=== PATIENT | male | born 1950 | race Caucasian/White ===

== ENCOUNTER 2021-06-29 15:37 | Outpatient (CLI) | payer MEDICARE, OTHER, SELFPAY ==
--- NOTE | 2021-06-29 | CT_ITS ---
WS: [id number] Exam: CT sinus wo con* [id number] Date/Time of Exam: 06/29/2021 4:03 PM Reason For Exam: SINUSITIS DLP: 514.[address] scans at [facility] use at least one of these dose optimization techniques: automated e xposure control; mA and/or kV adjustment per patient size (includes targeted exams where dose is matc hed to clinical indication); or iterative reconstruction. The facial sinuses are evaluated in the axial plane with coronal and sagittal reformatted images. The paranasal sinuses are clear. No fluid levels or soft tissue masses are seen. There is a leftward nasal septal deviation. Moderate amount of fluid in the right mastoid air cells. Inner ear cavities a ppear to be clear. Left mastoids are clear. CT/CT sinus wo con* [id number] IMPRESSION: 1. The facial sinuses are clear. No sign of sinusitis or mass. 2. Moderate amount of fluid in the right mastoids which might indicate mastoidi tis.
== END 2021-06-29 15:38 | disposition home or self-care (01) ==
PROVIDERS: PCP Electrodiagnostic Medicine; Visit Provider Electrodiagnostic Medicine
DX: J01.90 Acute sinusitis, unspecified (principal)
CPT/HCPCS: 70486

== ENCOUNTER 2021-07-22 09:53 | Outpatient (CLI) | payer MEDICARE, OTHER, SELFPAY ==
--- NOTE | 2021-07-22 10:06 | XRR_ITS ---
PROCEDURE INFORMATION: Exam: XR Lumbosacral Spine Exam date and time: 07/22/2021 10:06 AM Age: 71 years old Clinical indication: Low back pain; Patient HX: Lower back pain and cough for 1 month; HX of septicemia from 4 years ago, PT states it settled in lower back and this will also be a check up on it; Additional info: Lumbar regionuscle spasm/acute back pain/ TECHNIQUE: Imaging protocol: XR of the lumbosacral spine. Views: 2 or 3 views. COMPARISON: MRI Lumbar Spine w/o [id number] 06/12/2017 11:24 AM FINDINGS: Bones/joints: No fracture, malalignment or other acute bone or joint abnormalities are seen. Chronic degenerative changes are present with disc space narrowing sclerosis and osteophytes especially at L4-L5. Soft tissues: Unremarkable. XR/XR lumbar spine 2-3V* [id number] IMPRESSION: 1. No acute abnormality. 2. 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
--- NOTE | 2021-07-22 10:06 | XRR_ITS ---
PROCEDURE INFORMATION: Exam: XR Chest Exam date and time: 07/22/2021 10:06 AM Age: 71 years old Clinical indication: Condition or disease; Lung condition and disease; Other: Acute bronchitis; Prior surgery; Surgery type: Valve replacement; Patient HX: Lower back pain and cough for 1 month; HX of septicemia from 4 years ago, PT states it settled in lower back and this will also be a check up on it TECHNIQUE: Imaging protocol: XR of the chest. Views: 2 views. COMPARISON: [place] Chest 1 [place] [id number] 06/11/2017 2:16 PM FINDINGS: Lungs: Unremarkable. No consolidation. Pleural spaces: Unremarkable. No pleural effusion. No pneumothorax. Heart/Mediastinum: The heart is not enlarged. An aortic valve prosthesis is present. There are multiple benign calcified mediastinal lymph nodes. Bones/joints: Degenerative changes are present in the spine. No acute bony abnormality. XR/XR chest 2V* [id number] IMPRESSION: No acute abnormality.
== END 2021-07-22 09:54 | disposition home or self-care (01) ==
LOC: RAD 09:58
PROVIDERS: PCP Electrodiagnostic Medicine; Visit Provider Electrodiagnostic Medicine
DX: G06.1 Intraspinal abscess and granuloma (principal); M62.830 Muscle spasm of back; M54.89 Other dorsalgia; J20.9 Acute bronchitis, unspecified; I33.0 Acute and subacute infective endocarditis; M47.816 Spondylosis without myelopathy or radiculopathy, lumbar region
CPT/HCPCS: 71046; 72100

== ENCOUNTER 2024-12-07 09:14 | Outpatient (CLI) | payer MEDICARE, OTHER, SELFPAY ==
--- NOTE | 2024-12-07 09:24 | MR_ITS ---
WS: [id number] MRI LUMBAR SPINE NONCONTRAST TECHNIQUE: Sagittal T1, T2 and STIR imaging. Axial T1 and T2 imaging. CLINICAL INFORMATION: ACUTE LOW BACK PAIN COMPARISON: MRI 2017 FINDINGS: Mild lumbar curve. No acute compression. Pedicle screw fixation L1-L2 with decompressive laminectomies is new compared to previous. Interbody fusion graft. Disc space narrowing worse at L4-5 with endplate degenerative changes. 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 ACDF C5-6. L1-L2: ACDF with interbody fusion. Laminectomy defects. Spinal canal is patent. Foramen appear patent. L2-L3: Mild annular bulging with a shallow central protrusion. Moderate to severe central canal stenosis with impingement on the subarticular recess bilaterally. Moderate facet arthropathy. Ligamentum flavum hypertrophy. Mild LEFT foraminal narrowing. L3-L4: Mild annular bulging. Mild central canal stenosis. Narrowing of the LEFT subarticular recess. LEFT foraminal protrusion impinges the exiting LEFT L3 nerve root. Moderate facet arthropathy. L4-L5: Mild annular bulging. Slight effacement of the ventral thecal sac. Moderate facet arthropathy. Moderate RIGHT foraminal narrowing. Mild LEFT foraminal narrowing. L5-S1: Mild disc bulging with slight impingement on the traversing S1 nerve roots. Moderate facet arthropathy. Ligamentum flavum hypertrophy. Moderate LEFT foraminal narrowing. Visualized pelvic bony structures: Normal. Paravertebral soft tissues: Normal. MR/MR lumbar spine wo con* [id number] IMPRESSION: 1. Pedicle screw fixation L1-2 with interbody fusion graft. Laminectomy defect s. This is new compared to previous. 2. Moderate to severe central canal stenosis L2-3 with impingement on the suba rticular recess bilaterally. Mild bilateral foraminal narrowing at this level. 3. Mild central canal stenosis L3-4 impinges the LEFT greater than RIGHT subar ticular recess. Moderate LEFT foraminal narrowing at this level. 4. Moderate RIGHT L4-5 foraminal narrowing. 5. Central disc bulging L5-S1 with slight impingement on the traversing LEFT g reater than RIGHT S1 nerve roots. Moderate LEFT foraminal narrowing.
== END 2024-12-07 09:15 | disposition home or self-care (01) ==
LOC: RAD 09:18
PROVIDERS: PCP Electrodiagnostic Medicine; Visit Provider Electrodiagnostic Medicine
DX: M48.061 Spinal stenosis, lumbar region without neurogenic claudication (principal); Z98.1 Arthrodesis status; M96.89 Other intraoperative and postprocedural complications and disorders of the musculoskeletal system; M51.379 Other intervertebral disc degeneration, lumbosacral region without mention of lumbar back pain or lower extremity pain; M48.07 Spinal stenosis, lumbosacral region; M43.8X6 Other specified deforming dorsopathies, lumbar region; M51.369 Other intervertebral disc degeneration, lumbar region without mention of lumbar back pain or lower extremity pain; M48.02 Spinal stenosis, cervical region; G95.89 Other specified diseases of spinal cord; M47.896 Other spondylosis, lumbar region; M24.28 Disorder of ligament, vertebrae; M51.26 Other intervertebral disc displacement, lumbar region; M47.897 Other spondylosis, lumbosacral region
CPT/HCPCS: 72148